=== PATIENT | female | born 1970 | race Caucasian/White ===

== ENCOUNTER → 2023-09-01 13:52 | Outpatient (REF) | payer BC, SELFPAY | LOC: HWRAD 13:52 | PROVIDERS: ATTENDING PHYSICIAN Nurse Practitioner Family | DX: M54.2 Cervicalgia (principal) | CPT/HCPCS: 72052 ==

== ENCOUNTER → 2023-09-29 07:52 | Outpatient (REF) | payer BC, SELFPAY ==
[2023-09-29 09:41] LABS: % Basophils 0.7 % (0-2); % Eosinophils 3.9 % (0-6); % Immature Granulocytes 0.2 % (0-0.5); % Lymphocytes 31.9 % (20.5-51.1); % Monocytes 6.7 % (1.7-9.3); % Neutrophils 56.6 % (42.2-75.2); Absolute Eosinophils 0.2 10^3/uL (0-0.7); Absolute Lymphocytes 1.7 10^3/uL (1.2-3.4); Absolute Monocytes 0.4 10^3/uL (0.1-0.6); Absolute Neutrophils 3.1 10^3/uL (1.4-6.5); Hemoglobin 13.1 g/dL (12.0-16.0); Mean Corp Hgb Conc. 32.8 g/dL (33.0-37.0); Mean Corpuscular Hgb 30.8 pg (27.0-31.0); Mean Corpuscular Volume 94.1 fL (81.0-99.0); Mean Platelet Volume 10.1 fL (7.4-10.4); Nucleated Red Blood Cells % 0 %; Platelet Count 195 10^3/uL (130-400); Red Blood Cell Count 4.25 10^6/uL (4.20-5.40); Red Cell Dist. Width 12.8 % (11.5-14.5); White Blood Cell Count 5.4 10^3/uL (4.8-10.8)
[2023-09-29 10:08] LABS: ALT (SGPT) 17 U/L (0-35); AST (SGOT) 23 U/L (14-36); Albumin 4.2 g/dl (3.5-5.0); Alkaline Phosphatase 42 U/L (38-126); Blood Urea Nitrogen 10 mg/dl (7-17); Calcium 9.5 mg/dl (8.4-10.2); Carbon Dioxide 27 mmol/L (22-30); Chloride 104 mmol/L (98-107); Glucose 85 mg/dl (70-99); HDL Cholesterol 87 mg/dl; LDL Cholesterol, Calculated 61 mg/dl; Potassium 4.1 mmol/L (3.5-5.1); Sodium 136 mmol/L (135-145); Total Bilirubin 0.4 mg/dl (0.2-1.3); Total Cholesterol 161 mg/dl (50-199); Triglyceride 69 mg/dl (10-149); Very Low Density Lipoprotein 13 mg/dl (0-30); eGFR > 60.00
[2023-09-29 10:24] LABS: TSH Reflex To Free T4 2.45 uIU/ml (0.47-4.68)
== END ==
LOC: HWLAB 07:52
PROVIDERS: ATTENDING PHYSICIAN Nurse Practitioner Family
DX: Z00.00 Encounter for general adult medical examination without abnormal findings (principal)
CPT/HCPCS: 36415; 80053; 80061; 84443; 85025

== ENCOUNTER → 2024-01-10 07:44 | Outpatient (REF) | payer BC, SELFPAY | LOC: HWWDC 07:44 | PROVIDERS: ATTENDING PHYSICIAN Nurse Practitioner Family | DX: Z12.31 Encounter for screening mammogram for malignant neoplasm of breast (principal) | CPT/HCPCS: 77063; 77067 ==

== ENCOUNTER → 2024-07-10 07:59 | Outpatient (REF) | payer BC, SELFPAY ==
[2024-07-10 11:15] LABS: % Eosinophils 4.4 % (0-6); % Immature Granulocytes 0.2 % (0-0.5); % Lymphocytes 35.2 % (20.5-51.1); % Monocytes 7.5 % (1.7-9.3); % Neutrophils 51.7 % (42.2-75.2); Absolute Basophils 0.1 10^3/uL (0-0.2); Absolute Eosinophils 0.2 10^3/uL (0-0.7); Absolute Lymphocytes 1.8 10^3/uL (1.2-3.4); Absolute Monocytes 0.4 10^3/uL (0.1-0.6); Absolute Neutrophils 2.7 10^3/uL (1.4-6.5); Hematocrit 40.4 % (37.0-47.0); Hemoglobin 13.3 g/dL (12.0-16.0); Mean Corp Hgb Conc. 32.9 g/dL (33.0-37.0); Mean Corpuscular Hgb 31.4 pg (27.0-31.0); Mean Corpuscular Volume 95.3 fL (81.0-99.0); Mean Platelet Volume 9.9 fL (7.4-10.4); Nucleated Red Blood Cells % 0 %; Platelet Count 188 10^3/uL (130-400); Red Blood Cell Count 4.24 10^6/uL (4.20-5.40); Red Cell Dist. Width 12.3 % (11.5-14.5); White Blood Cell Count 5.2 10^3/uL (4.8-10.8)
[2024-07-10 11:22] LABS: ALT (SGPT) 21 U/L (0-35); AST (SGOT) 27 U/L (14-36); Albumin 4.5 g/dl (3.5-5.0); Alkaline Phosphatase 55 U/L (38-126); Blood Urea Nitrogen 15 mg/dl (7-17); Calcium 9.4 mg/dl (8.4-10.2); Carbon Dioxide 29 mmol/L (22-30); Chloride 101 mmol/L (98-107); Glucose 95 mg/dl (70-99); Potassium 4.1 mmol/L (3.5-5.1); Sodium 135 mmol/L (135-145); Total Bilirubin 0.7 mg/dl (0.2-1.3); Triglyceride 56 mg/dl (10-149); Very Low Density Lipoprotein 11 mg/dl (0-30); eGFR > 60.00
[2024-07-10 11:33] LABS: HDL Cholesterol 108 mg/dl
[2024-07-10 11:47] LABS: Glycohemoglobin (HgbA1c) 4.9 % (4.0-5.6)
[2024-07-10 13:25] LABS: LDL Cholesterol, Calculated 48 mg/dl; Total Cholesterol 167 mg/dl (50-199)
== END ==
LOC: HWLAB 07:59
PROVIDERS: ATTENDING PHYSICIAN Physician Assistant Medical; FAMILY PHYSICIAN Nurse Practitioner Family
DX: L85.3 Xerosis cutis (principal)
CPT/HCPCS: 36415; 80053; 80061; 83036; 85025

== ENCOUNTER → 2024-08-28 12:26 | Outpatient (REF) | payer BC, SELFPAY ==
[2024-08-28 16:52] LABS: ALT (SGPT) 31 U/L (0-35); AST (SGOT) 36 U/L (14-36); Alkaline Phosphatase 68 U/L (38-126); Blood Urea Nitrogen 10 mg/dl (7-17); Calcium 9.3 mg/dl (8.4-10.2); Carbon Dioxide 32 mmol/L (22-30); Chloride 103 mmol/L (98-107); Glucose 102 mg/dl (70-99); Potassium 4.1 mmol/L (3.5-5.1); Sodium 140 mmol/L (135-145); Total Bilirubin 0.5 mg/dl (0.2-1.3); Total Protein 6.7 g/dl (6.3-8.2); eGFR > 60.00
[2024-08-28 16:58] LABS: % Basophils 0.8 % (0-2); % Eosinophils 2.8 % (0-6); % Immature Granulocytes 0.2 % (0-0.5); % Lymphocytes 24.6 % (20.5-51.1); % Monocytes 5.6 % (1.7-9.3); Absolute Basophils 0.1 10^3/uL (0-0.2); Absolute Eosinophils 0.3 10^3/uL (0-0.7); Absolute Lymphocytes 2.2 10^3/uL (1.2-3.4); Absolute Monocytes 0.5 10^3/uL (0.1-0.6); Absolute Neutrophils 5.9 10^3/uL (1.4-6.5); Hematocrit 40.8 % (37.0-47.0); Hemoglobin 13.4 g/dL (12.0-16.0); Mean Corp Hgb Conc. 32.8 g/dL (33.0-37.0); Mean Corpuscular Hgb 31.8 pg (27.0-31.0); Mean Corpuscular Volume 96.9 fL (81.0-99.0); Mean Platelet Volume 10.7 fL (7.4-10.4); Nucleated Red Blood Cells % 0 %; Platelet Count 243 10^3/uL (130-400); Red Blood Cell Count 4.21 10^6/uL (4.20-5.40); Red Cell Dist. Width 13.1 % (11.5-14.5); White Blood Cell Count 8.9 10^3/uL (4.8-10.8)
[2024-08-28 17:09] LABS: Vitamin D, 25-OH*** 24.7 ng/mL (30-80)
[2024-08-28 17:22] LABS: TSH 1.71 uIU/ml (0.47-4.68)
[2024-08-28 17:42] LABS: Vitamin B12 506 pg/ml (239-931)
[2024-08-29 15:02] LABS: Lyme Antibody Screen, EIA Negative (Negative)
== END ==
LOC: HWLAB 12:26
PROVIDERS: ATTENDING PHYSICIAN Nurse Practitioner
DX: R00.2 Palpitations (principal); R11.0 Nausea; F41.9 Anxiety disorder, unspecified; R53.83 Other fatigue
CPT/HCPCS: 36415; 80053; 82306; 82607; 84439; 84443; 85025; 86618

== ENCOUNTER → 2025-04-09 07:02 | Outpatient (REF) | payer BC, SELFPAY | LOC: HWWDC 07:02 | PROVIDERS: ATTENDING PHYSICIAN Nurse Practitioner Family | DX: Z12.31 Encounter for screening mammogram for malignant neoplasm of breast (principal) | CPT/HCPCS: 77063; 77067 ==

== ENCOUNTER 2025-04-24 00:04 | Emergency (ER) | payer BC, SELFPAY ==
[2025-04-24 00:08] VITALS: BP 148/117
--- NOTE | 2025-04-24 01:01 | ED.MUSCINJ ---
HPI-Injury
General
Chief Complaint: Musculo-Skeletal Complaint
Source: patient
Exam Limitations: none
Time Seen by Provider: 04/24/25 01:01
Nursing documentation reviewed up to this point in time: agreed with
History of Present Illness-Injury
Is this injury a work related problem?: No
Is pt an associate of [facility]/[place]?: No
Initial Injury comments:
Note:
CHIEF COMPLAINT(S)
Elbow fracture.
HISTORY OF PRESENT ILLNESS
The patient is a 55-year-old female who experienced a fall. During the incident, she felt as though she almost fell down the steps, but instead seems to have injured her elbow. She states, 'I cannot move this, or Im going to scream,' indicating
severe pain in the elbow region. She denies hitting her head or sustaining other injuries. The onset of the severe pain became apparent after she returned upstairs and started looking around. Upon examination, there is a form of deformation in the
fingers of the affected arm. It has been determined that the patients elbow is broken and will require surgical intervention.
PHYSICAL EXAM
General: Alert, responsive, and in no acute distress aside from specific pain discussed.
Musculoskeletal: Swelling and tenderness at left elbow, normal range of motion in left hand normal sensation, normal radial and ulnar pulses
Neck: No C-spine tenderness
HEENT: Normocephalic atraumatic
PROBLEM LIST
Acute:
- Elbow fracture requiring surgical intervention.
PLAN
The plan is to consult with an orthopedic surgeon to discuss the surgical repair of the elbow. The orthopedic surgeon design printer balloon will be contacted for recommendations, though the surgery is not expected to occur tonight and may be planned for the
following day. Follow-up consultations will occur to determine the next steps based on surgical advice.
DIFFERENTIAL DIAGNOSIS
The Differential Diagnosis includes, in no particular order and is not limited to:
- Fracture of the humerus
- Radial head fracture
- Ulnar nerve injury
- Lateral epicondylitis
- Dislocated elbow
- Ligamentous injury of the elbow
- Olecranon bursitis
- Tendon rupture
- Contusion or soft tissue injury
- Compartment syndrome
Disposition:
SUMMARY OF ENCOUNTER
The patient, a 55-year-old female, presented to the emergency department after experiencing a fall that resulted in a left elbow fracture. She reported severe pain in the elbow and an inability to move it without significant discomfort. Physical
examination revealed deformity in the fingers of the affected arm. Imaging identified a left supracondylar fracture. Nerve function was intact.
MANAGEMENT OF THE PATIENTS CARE WAS DISCUSSED WITH
Consultation was conducted with the orthopedic team regarding the patients condition. The orthopedics team recommended splinting the affected arm and planning for follow-up in their clinic for surgical evaluation.
PLAN
A long-arm splint will be applied to immobilize the elbow. A prescription for [place]ahoo (hydrocodone and acetaminophen) has been written for pain management. The patient will follow up with orthopedics for surgical planning of the elbow fracture.
PATIENT EDUCATION AND COUNSELING
The patient was educated on the importance of keeping the splint in place to immobilize the fracture and manage pain effectively with prescribed medication. Instructions were provided regarding follow-up appointments with the orthopedic team for
surgical planning.
FOLLOW-UP INSTRUCTIONS
The patient is advised to schedule a follow-up visit with the orthopedic surgeon to discuss surgical intervention for the elbow fracture.
MEDICATION RECONCILIATION
Prescription for [place]ahoo (hydrocodone and acetaminophen) for pain management.
MEDICAL DECISION MAKING
-Complexity of Data Reviewed: Chronic conditions affecting care: Elbow fracture requiring surgical intervention. Differential Diagnosis includes fracture of the humerus, radial head fracture, ulnar nerve injury, lateral epicondylitis, dislocated
elbow, ligamentous injury of the elbow, olecranon bursitis, tendon rupture, contusion or soft tissue injury, and compartment syndrome.
-Data:
Category 1: Review of radiology imaging indicating a left supracondylar fracture.
Category 3: Management discussed with orthopedic team for surgical planning.
DIAGNOSIS
Supracondylar fracture of the left elbow, ICD-10 code: S42.412A.
Past History
Social History
Tobacco: Non-smoker
Personal:
Living: with family
Employment: Not employed
Phy Exam
Physical Exam
Physical Exam:
.
Injury Course
Orders/Labs/Results
Orders:
Orders
04/24/25 00:14
CR Humerus - Left Min 2 Views* Urgent
Comment:
Reason For Exam: injury
Elbow, 3 view, Left [CR Elbow - Left Min 3 Views ] Urgent
Comment:
Reason For Exam: injury
04/24/25 01:00
IV Insert/Care/Rem.- Treatment PRN
Morphine Sulfate 4 mg IV NOW STA
04/24/25 01:06
Ondansetron Injectable [Zofran] 4 mg .ROUTE .STK-MED ONE
04/24/25 02:52
Morphine Sulfate 4 mg .ROUTE .STK-MED ONE
04/24/25 02:58
Splints/Slings/Crut- Treatment ONCE
Crutches: No
Location: Left
Type of Splint: Long Arm
Procedures
Splint Check
Splint checked by provider?: Yes
Circulation/Movement/Sensation post splint application: brisk cap refill and full sensation
*Pulse Oximetry
SaO2: 99
Oxygen Mode of Delivery: Room air
Patient hypoxic: no
*Critical Care Note
Total Time (30-74mins, 75-104mins- exclusive of procedures): Not Applicable
ED Attending Note
-
Portions of this chart may have been created with voice recognition software.� Occasional wrong word or��sound alike� substitutions may have occurred due to the inherent limitations of voice recognition software.
Discharge Plan
Departure
Patient Disposition: Home (Routine Discharge)
Date of Disposition: 04/24/25
Time of Disposition: 03:22
Patient with high blood pressure during this ER visit?: Yes
Condition: Good
Discharge Problem:
Closed supracondylar fracture of left elbow
Instructions: Elbow Fracture, Adult ED, BLOOD PRESSURE
Prescriptions:
New
hydrocodone-acetaminophen 5-325 mg tablet
1 tab PO Q4H PRN (Reason: Pain) Qty: 14 0RF
No Action
oxycodone-acetaminophen 5 MG/325 MG tablet
1 tab PO .Q4-6HPRN PRN (Reason: pain) Qty: 20 0RF
diazepam 5 MG tablet
5 mg PO BIDPRN PRN (Reason: MUSCLE SPASM/TIGHTNESS) Qty: 20 0RF
Referrals:
Matt Aguirre MD [Active, Orthopedics] - Call in 1-3 days for appt
Italia Boone CRNP [Family Provider, Family Practice]
Interventions
Interventions:
*Risk Screen - Suicide Last Done: 04/24/25 00:08
*General Assessment Last Done: 04/24/25 00:08
*Neglect/Abuse Screening Last Done: 04/24/25 00:08
*ED- Fall Risk Assessment Last Done: 04/24/25 00:08
*ED COVID-19 Vaccine History Last Done: 04/24/25 00:08
*ED Influenza Vaccine History Last Done: 04/24/25 00:08
ED-Musculoskeletal Assessment Last Done: 04/24/25 00:52
Discharge Date and Time
Print Language: YEMENI
--- NOTE | 2025-04-24 02:58 | DOWNTIME ---
There was a [employer] Client [employer] Downtime on 04/24/2025 from 0100 to 04/24/2025 at 0255. Downtime documentation of patient's care, including medication administrations, has been reconciled in the electronic record per guidelines. Refer to the
patient's paper chart under the miscellaneous tab to see printed paper medication records and downtime forms.
[2025-04-24] MEDS: NORCO 5/325 1 TABLET PO (04:30)
== END 2025-04-24 04:36 | disposition home or self-care (01) ==
LOC: EMR 00:04
PROVIDERS: EMERGENCY PHYSICIAN Emergency Medicine; FAMILY PHYSICIAN Nurse Practitioner Family
DX: S42.422A Displaced comminuted supracondylar fracture without intercondylar fracture of left humerus, initial encounter for closed fracture (principal); W10.9XXA Fall (on) (from) unspecified stairs and steps, initial encounter; R03.0 Elevated blood-pressure reading, without diagnosis of hypertension
CPT/HCPCS: 99283; 29125; 73060; 73080